=== PATIENT | female | born 1930 | race Caucasian/White ===

== ENCOUNTER 2018-08-03 07:02 | Emergency (ER) | payer MEDICARE, OTHER ==
[2018-08-03 07:12] VITALS: RESP 18
[2018-08-03] MEDS ORDERED: SODIUM CHLORIDE 0.9% 1,000 ML IV ONE ×2 (07:22)
--- NOTE | 2018-08-03 07:31 | ED ---
Fall HPI - General Chief Complaint: Fall Stated Complaint: Fall, head/shoulder injury Time Seen by Provider: 08/03/18 07:15 Source: patient, RN notes reviewed, old records reviewed Mode of arrival: ambulatory - History of Present Illness Initial Comments: Patient is an 88-year-old female presents emergency department today with her son-in-law with complaints of a fall and unknown time last night. Patient reportedly fell out of bed. She initially stated to her son-in-law that she was getting up to go to the bathroom. Patient reports to me and something fell and hit her head, neck cause her to fall out of bed. Patient has a history of dementia. She does live alone. Patient reportedly crawled on the ground after hitting her head likely on a dresser. She contacted her neighbor, neighbor called the son. Patient reports left shoulder,forearm and rib pain. Patient r eportedly is currently in her hands and knees. She does have some bruising noted over the knee. Patient's son reports she is ambulating without significant difficulty. Patient does not know if she is on blood thinners. - Related Data Home Medications Medication Instructions Recorded Confirmed Acetaminophen Tab [Tylenol Tab] 650 mg PO Q6H PRN 08/03/18 08/03/18 Lisinopril [Zestril] 10 mg PO HS 08/03/18 08/03/18 Lovastatin [Mevacor] 20 mg PO HS 08/03/18 08/03/18 Meclizine [Antivert] 25 mg PO HS 08/03/18 08/03/18 Melatonin 3 mg PO HS 08/03/18 08/03/18 Multivitamin/Iron/Folic Acid 1 tab PO DAILY 08/03/18 08/03/18 [Centrum Complete Multivit Tab] Nitroglycerin Sl Tabs [Nitrostat] 0.4 mg SUBLINGUAL Q5M PRN 08/03/18 08/03/18 [place]-3 Fatty Acids/Fish Oil [Fish 1 cap PO QAM 08/03/18 08/03/18 Oil 1,000 mg Softgel] Verapamil HCl [Verapamil ER] 180 mg PO QAM 08/03/18 08/03/18 Allergies Allergy/AdvReac Type Severity Reaction Status Date / Time No Known Allergies Allergy Verified 08/03/18 10:12 Review of Systems ROS Statement: Those systems with pertinent positive or pertinent negative responses have been documented in the HPI. ROS Other: All systems not noted in ROS Statement are negative. Past Medical History Past Medical History: Hypertension History of Any Multi-Drug Resistant Organisms: None Reported Past Surgical History: Unable to Obtain Past Psychological History: No Psychological Hx Reported Smoking Status: Never smoker Past Alcohol Use History: None Reported Past Drug Use History: None Reported General Exam - General Exam Comments Initial Comments: 88-year-old female. Alert and oriented. No significant distress. Limitations: no limitations General appearance: alert, in no apparent distress Head exam: Present: atraumatic, normocephalic, normal inspection Eye exam: Present: normal appearance, other (Patient has contusion over her left eye.) ENT exam: Present: normal exam, mucous membranes moist Neck exam: Present: normal inspection. Absent: tenderness, meningismus, lymphadenopathy Respiratory exam: Present: normal lung sounds bilaterally. Absent: respiratory distress, wheezes, rales, rhonchi, stridor Cardiovascular Exam: Present: regular rate, normal rhythm, normal heart sounds. Absent: systolic murmur, diastolic murmur, rubs, gallop, clicks GI/Abdominal exam: Present: soft, normal bowel sounds. Absent: distended, tenderness, guarding, rebound, rigid Extremities exam: Present: normal inspection, full ROM, normal capillary refill, other (Patient has tenderness over the left shoulder, forearm. Tenderness over left lower ribs.). Absent: tenderness, pedal edema, joint swelling, calf tenderness Back exam: Present: normal inspection Neurological exam: Present: alert, oriented X3, CN II-XII intact Psychiatric exam: Present: normal affect, normal mood Skin exam: Present: warm, dry, intact, normal color. Absent: rash Course Vital Signs 08/03/18 08/03/18 08/03/18 07:06 08:45 10:04 Temperature 97.7 F Pulse Rate 71 73 74 Respiratory 18 18 18 Rate Blood Pressure 154/75 155/71 161/73 O2 Sat by Pulse 98 99 99 Oximetry - Reevaluation(s) Reevaluation #1: 08/03/18 08:51 C-collar is removed at this time. Medical Decision Making - Medical Decision Making Patient [id number] female presents today after a fall. She felt bad hit her head on the dresser likely. She states she's getting to the bathroom. Blood work was reviewed and unremarkable. EKG is normal. CT brain and C-spine are negative for any acute process area and she does have some soft tissue swelling over the eye but no pain with extra ocular eye movements. No concern for fracture. Patient urinalysis is negative for infection. Patient denies the bruising on that I will probably go down the face. I discussed the Patient should follow-up with her primary care doctor. Patient will be discharged home with the care of her daughter and son-in-law. - Lab Data Result diagrams: 08/03/18 08:00 08/03/18 08:00 Lab Results 08/03/18 08/03/18 08/03/18 Range/Units 08:00 08:00 08:00 WBC 7.8 (3.8-10.6) k/uL RBC 4.06 (3.80-5.40) m/uL Hgb 12.1 (11.4-16.0) gm/dL Hct 37.4 (34.0-46.0) % MCV 92.0 (80.0-100.0) fL MCH 29.7 (25.0-35.0) pg MCHC 32.2 (31.0-37.0) g/dL RDW 13.5 (11.5-15.5) % Plt Count 215 (150-450) k/uL Neutrophils % 79 % Lymphocytes % 10 % Monocytes % 6 % Eosinophils % 3 % Basophils % 1 % Neutrophils # 6.2 (1.3-7.7) k/uL Lymphocytes # 0.8 L (1.0-4.8) k/uL Monocytes # 0.4 (0-1.0) k/uL Eosinophils # 0.2 (0-0.7) k/uL Basophils # 0.1 (0-0.2) k/uL PT 9.8 (9.0-12.0) sec INR 0.9 (<1.2) APTT 19.1 L (22.0-30.0) sec Sodium 139 (137-145) mmol/L Potassium 4.3 (3.5-5.1) mmol/L Chloride 107 (98-107) mmol/L Carbon Dioxide 25 (22-30) mmol/L Anion Gap 7 mmol/L BUN 15 (7-17) mg/dL Creatinine 0.70 (0.52-1.04) mg/dL Est GFR (CKD-EPI)AfAm 89 (>60 ml/min/1.73 sqM) Est GFR (CKD-EPI)NonAf 77 (>60 ml/min/1.73 sqM) Glucose 86 (74-99) mg/dL Calcium 10.5 H (8.4-10.2) mg/dL Troponin I (0.000-0.034) ng/mL Urine Color Urine Appearance (Clear) Urine pH (5.0-8.0) Ur Specific Likely (1.001-1.035) Urine Protein (Negative) Urine Glucose (UA) (Negative) Urine Ketones (Negative) Urine Blood (Negative) Urine Nitrite (Negative) Urine Bilirubin (Negative) Urine Urobilinogen (<2.0) mg/dL Ur Leukocyte Esterase (Negative) 08/03/18 08/03/18 Range/Units 08:00 09:30 WBC (3.8-10.6) k/uL RBC (3.80-5.40) m/uL Hgb (11.4-16.0) gm/dL Hct (34.0-46.0) % MCV (80.0-100.0) fL MCH (25.0-35.0) pg MCHC (31.0-37.0) g/dL RDW (11.5-15.5) % Plt Count (150-450) k/uL Neutrophils % % Lymphocytes % % Monocytes % % Eosinophils % % Basophils % % Neutrophils # (1.3-7.7) k/uL Lymphocytes # (1.0-4.8) k/uL Monocytes # (0-1.0) k/uL Eosinophils # (0-0.7) k/uL Basophils # (0-0.2) k/uL PT (9.0-12.0) sec INR (<1.2) APTT (22.0-30.0) sec Sodium (137-145) mmol/L Potassium (3.5-5.1) mmol/L Chloride (98-107) mmol/L Carbon Dioxide (22-30) mmol/L Anion Gap mmol/L BUN (7-17) mg/dL Creatinine (0.52-1.04) mg/dL Est GFR (CKD-EPI)AfAm (>60 ml/min/1.73 sqM) Est GFR (CKD-EPI)NonAf (>60 ml/min/1.73 sqM) Glucose (74-99) mg/dL Calcium (8.4-10.2) mg/dL Troponin I <0.012 (0.000-0.034) ng/mL Urine Color Light Yellow Urine Appearance Clear (Clear) Urine pH 6.0 (5.0-8.0) Ur Specific Likely 1.008 (1.001-1.035) Urine Protein Negative (Negative) Urine Glucose (UA) Negative (Negative) Urine Ketones Negative (Negative) Urine Blood Negative (Negative) Urine Nitrite Negative (Negative) Urine Bilirubin Negative (Negative) Urine Urobilinogen <2.0 (<2.0) mg/dL Ur Leukocyte Esterase Negative (Negative) 08/03/18 07:49 EKG performed at 737 shows sinus rhythm with marked sinus arrhythmia, right bundle branch block and left anterior fascicular block. 60 bpm.. Intervals 132 ms. QS duration 128 ms. QT QTc is 420/446 ms. - Radiology Data Radiology results: report reviewed Mild atrophy and an. Ventricular white matter ischemic changes. CT of the C- spine shows degenerative disc disease. Grade 1 spondylolysis of C3-C4 stable from 2013. Normal left humerus. No acute osseous normality of the left forearm. Chest x- ray shows mild cardiomegaly, no acute posterior medical changes. No acute pulmonary process. Disposition Clinical Impression: Fall, Eye contusion, Strain of upper arm, left Disposition: HOME SELF-CARE Condition: Good Instructions (If sedation given, give patient instructions): Black Eye (ED), Fall Prevention for Older Adults (ED) Additional Instructions: She is to take Motrin Tylenol for pain. Follow-up with primary care doctor within the week. Apply ice over the area of swelling over the eye. Return to the emergency department if any alarming signs or symptoms occur. Is patient prescribed a controlled substance at d/c from ED?: No Referrals: None,Stated [Primary Care Provider] - 1-2 days Time of Disposition: 10:25
[2018-08-03 08:13] LABS: Basophils # (A) 0.1 k/uL (0-0.2); Basophils % (A) 1 %; Eosinophils # (A) 0.2 k/uL (0-0.7); Eosinophils % (A) 3 %; HCT 37.4 % (34.0-46.0); HGB 12.1 gm/dL (11.4-16.0); Lymphocytes # (A) 0.8 k/uL (1.0-4.8); Lymphocytes % (A) 10 %; MCH 29.7 pg (25.0-35.0); MCHC 32.2 g/dL (31.0-37.0); Monocytes # (A) 0.4 k/uL (0-1.0); Monocytes % (A) 6 %; Neutrophils # (A) 6.2 k/uL (1.3-7.7); Neutrophils % (A) 79 %; Platelet Count 215 k/uL (150-450); RBC 4.06 m/uL (3.80-5.40); RDW 13.5 % (11.5-15.5); WBC 7.8 k/uL (3.8-10.6)
[2018-08-03 08:15] LABS: INR 0.9 (<1.2); Prothrombin Time 9.8 sec (9.0-12.0)
[2018-08-03 08:20] LABS: Calcium 10.5 mg/dL (8.4-10.2); Potassium 4.3 mmol/L (3.5-5.1)
[2018-08-03 08:30] LABS: Partial Thromboplastin Time 19.1 sec (22.0-30.0)
--- NOTE | 2018-08-03 08:31 | CT ---
EXAMINATION TYPE: CT brain sam wo con DATE OF EXAM: 08/03/2018 COMPARISON: 01/31/2013 HISTORY: Fall today with Left eye injury CT DLP: 1484 mGycm, Automated exposure control for dose reduction was used. CONTRAST: Patient injected with 0 mL of Isovue 300. CT of the brain is performed utilizing 3 mm thick sections through the posterior fossa and 3 mm thick sections through the remaining calvarium. Study is performed within 24 hours of arrival to the hospital. No abnormal hyperdensity is present to suggest an acute intracranial hemorrhage. No mass lesion is evident. No acute infarcts are evident. Mild periventricular white matter hypodensity is present likely on th e basis of chronic white matter ischemic changes Ventricles and sulci are prominent for the patient age. Paranasal sinuses and mastoid air cells within the [id number] are clear. Mild soft tissue swelling is over the left orbit. No underlying fracture is evident. Orbital floors a ppear intact in the coronal plane nasal bones appear intact IMPRESSIONS: 1. Mild atrophy with periventricular white matter ischemic changes CT cervical spine. COMPARISON: 01/31/2013 CT of the cervical spine is performed in the axial plane at 2 mm thick sections. Reconstructed image s in the coronal, and sagittal plane are reviewed on the computer. No acute fractures are evident. Vertebral body alignment is normal. Loss of disc height throughout the cervical spine. There is a grade 1 spondylolisthesis of C3 anterio r on C4. This was present previously. Vertebral body heights are preserved. No spinal canal stenosis is evident. No neural foraminal stenosis is evident. IMPRESSIONS: 1. Degenerative disc changes. 2. Grade 1 spondylolisthesis of C3 on C4, stable from 2012.
--- NOTE | 2018-08-03 09:23 | XR ---
EXAMINATION TYPE: XR chest 2V DATE OF EXAM: 08/03/2018 COMPARISON: None INDICATION: Something fell on patient, bruising TECHNIQUE: Frontal and lateral views of the chest are obtained. FINDINGS: The heart size is slightly prominent. The pulmonary vasculature is normal. The lungs are clear. No pneumothorax is evident. The osseous structures visualized appear intact. IMPRESSION: 1. Mild cardiomegaly. 2. No acute posttraumatic changes. 3. No acute pulmonary process
--- NOTE | 2018-08-03 09:23 | XR ---
EXAMINATION TYPE: XR humerus LT DATE OF EXAM: 08/03/2018 COMPARISON: None HISTORY: Trauma, pain TECHNIQUE: Left humerus is examined in 2 projections. FINDINGS: Joint spaces appear preserved. No acute fractures are evident. Soft tissues are normal. IMPRESSION: 1. Normal left humerus
--- NOTE | 2018-08-03 09:24 | XR ---
EXAMINATION TYPE: XR forearm LT DATE OF EXAM: 08/03/2018 COMPARISON: None HISTORY: Something fell on her, bruising, pain TECHNIQUE: 2 view left forearm FINDINGS: No displaced fractures are evident. Joint spaces of the wrist and elbow appear normal. Ther e are degenerative changes at the carpal metacarpal junction of the first digit. Soft tissues appear normal. Follow-up exams can be performed 7-10 days from acute trauma for continued pain IMPRESSION: 1. No acute osseous abnormality left forearm
[2018-08-03 09:55] LABS: Appearance,Urine Clear (Clear); Bilirubin,Urine Negative (Negative); Blood,Urine Negative (Negative); Color,Urine Light Yellow; Glucose,Urine (UA) Negative (Negative); Ketones,Urine Negative (Negative); Leukocyte Esterase,Urine Negative (Negative); Nitrite,Urine Negative (Negative); Protein,Urine Negative (Negative); Specific Gravity,Urine 1.008 (1.001-1.035); Urobilinogen,Urine <2.0 mg/dL (<2.0)
[2018-08-03 13:05] VITALS: BP 166/72; PULSE 72; TEMP 97.8
== END 2018-08-03 10:45 | disposition home or self-care (01) ==
LOC: EC 07:02
DX: S46.912A Strain of unspecified muscle, fascia and tendon at shoulder and upper arm level, left arm, initial encounter (principal); S00.12XA Contusion of left eyelid and periocular area, initial encounter; G31.9 Degenerative disease of nervous system, unspecified; R90.82 White matter disease, unspecified; M50.30 Other cervical disc degeneration, unspecified cervical region; M43.02 Spondylolysis, cervical region; I45.2 Bifascicular block; I11.9 Hypertensive heart disease without heart failure; I49.8 Other specified cardiac arrhythmias; R07.81 Pleurodynia; Z79.899 Other long term (current) drug therapy; W06.XXXA Fall from bed, initial encounter; Y93.89 Activity, other specified; Y92.009 Unspecified place in unspecified non-institutional (private) residence as the place of occurrence of the external cause
CPT/HCPCS: 36415; 70450; 71046; 72125; 80048; 81003; 84484; 85025; 85610; 85730; 93005; 96360; 96361; 99284